=== PATIENT | female | born 1965 | race Caucasian/White ===

== ENCOUNTER 2018-08-26 05:28 | Inpatient (IN) | payer BC ==
[2018-08-26] MEDS ORDERED: Gabapentin 300 MG Cap PO ONE (05:30)
[2018-08-26] MEDS ORDERED: Celecoxib 200 MG Cap PO ONE (05:30)
[2018-08-26] MEDS ORDERED: Scopolamine 1.5 MG Transdermal Patch TOP ONE (05:30)
[2018-08-26] MEDS ORDERED: Acetaminophen 500 MG Tab PO ONE (05:30)
[2018-08-26] MEDS ORDERED: cefOXitin 2 GM in Sodium Chloride 0.9% 50 ML IV ONE (06:00)
[2018-08-26] MEDS ORDERED: Dextrose 5%-Lactated Ringers 1,000 ML IV SCH (06:00)
[2018-08-26] MEDS ORDERED: Succinylcholine 200 MG/10 ML MDV ONE (06:57)
[2018-08-26] MEDS ORDERED: Dexamethasone 4 MG/ML SDV ONE (06:57)
[2018-08-26] MEDS ORDERED: Ondansetron 4 MG/2 ML SDV ONE (06:57)
[2018-08-26] MEDS ORDERED: Propofol 200 MG/20 ML SDV ONE (06:57)
[2018-08-26] MEDS ORDERED: Neostigmine Methylsulfate 1 MG/ML 5 ML Syringe ONE (06:57)
[2018-08-26] MEDS ORDERED: Rocuronium 50 MG/5 ML Vial ONE (06:57)
[2018-08-26] MEDS ORDERED: Glycopyrrolate 0.2 MG/ML 5 ML MDV ONE (06:57)
[2018-08-26] MEDS ORDERED: cefOXitin 2 GM Vial ONE (06:58)
[2018-08-26] MEDS ORDERED: Ketamine 50 MG in Sodium Chloride 0.9% 49.5 ML IV SCH (07:30)
[2018-08-26] MEDS ORDERED: Ketamine 500 MG/5 ML MDV IV SCH (07:30)
[2018-08-26] MEDS ORDERED: Lidocaine 0.4%/D5W 2 GM/500 ML BAG IV SCH (07:45)
[2018-08-26] MEDS ORDERED: Lidocaine 2% 100 MG/5 ML Syringe IVPUSH SCH (07:45)
[2018-08-26] MEDS ORDERED: hydrOXYzine HCl 100 MG/2 ML SDV IM ONE (09:41)
[2018-08-26] MEDS ORDERED: Naloxone 0.4 MG/ML SDV ONE (09:42)
[2018-08-26] MEDS ORDERED: hydrOXYzine HCl 100 MG/2 ML SDV IM PRN (12:11)
[2018-08-26] MEDS ORDERED: diphenhydrAMINE 50 MG/ML SDV IVPUSH PRN (12:11)
[2018-08-26] MEDS ORDERED: Labetalol 20 MG/4 ML Syringe IVPUSH PRN (12:11)
[2018-08-26] MEDS: Dextrose 5%-Lactated Ringers 1,000 ML IV SCH ×2 (13:53→22:59)
[2018-08-26] MEDS: Ondansetron 4 MG/2 ML SDV IVPUSH PRN ×2 (15:18→20:25)
[2018-08-26] MEDS: Heparin Sodium 5,000 Units/ML Vial SUBCUT SCH (15:22)
[2018-08-26] MEDS: Acetaminophen 325 MG Tab PO SCH ×2 (15:22→21:03)
[2018-08-26] MEDS: cefOXitin 2 GM in Sodium Chloride 0.9% 50 ML IV SCH ×2 (15:33→21:03)
[2018-08-26] MEDS ORDERED: Pantoprazole 40 MG Vial IVPUSH SCH (16:00)
[2018-08-26] MEDS ORDERED: MVI, Adult with Vitamin K 10 ML, Thiamine 200 MG, Chromium/Copper/Mang/Selen/Zn 1 ML in... IV SCH ×4 (16:00)
[2018-08-26] MEDS: Gabapentin 300 MG Cap PO SCH (20:14)
[2018-08-26] MEDS: DULoxetine 30 MG Cap PO SCH (20:16)
[2018-08-27] MEDS: Heparin Sodium 5,000 Units/ML Vial SUBCUT SCH ×2 (03:43→16:21)
[2018-08-27] MEDS: cefOXitin 2 GM in Sodium Chloride 0.9% 50 ML IV SCH ×2 (03:44→09:34)
[2018-08-27] MEDS: Acetaminophen Soln 650 MG/20.3 ML UD Cup PO SCH ×4 (03:54→21:09)
[2018-08-27] MEDS: Ondansetron 4 MG/2 ML SDV IVPUSH PRN (03:54)
[2018-08-27] MEDS ORDERED: Iopamidol 612 MG/ML 50 ML SDV PO STA (03:57)
--- NOTE | 2018-08-27 05:05 | CRLCR ---
PRELIMINARY IMPRESSIONS: 1. No evidence of contrast extravasation is noted on 2 static submitted images. 2. Surgical drain is present in the left upper quadrant. Agree with preliminary report. No additional findings. Dictated by: Genaro Araujo MD @ 08/28/2018 13:32:07 (Electronically Signed)
[2018-08-27] MEDS: Dextrose 5%-Lactated Ringers 1,000 ML IV SCH ×2 (05:08→13:55)
[2018-08-27] MEDS ORDERED: Ondansetron 4 MG Tab.DIS PO PRN (07:21)
[2018-08-27] MEDS: DULoxetine 30 MG Cap PO SCH ×2 (08:09→21:09)
[2018-08-27] MEDS: Celecoxib 200 MG Cap PO SCH (08:09)
[2018-08-27] MEDS: Gabapentin 300 MG Cap PO SCH ×2 (08:10→21:09)
[2018-08-27] MEDS: SCOPOLAMINE PATCH CHECK TOP SCH (08:10)
--- NOTE | 2018-08-27 08:27 | PN ---
DATE OF SERVICE: 08/27/2018 SUBJECTIVE: Sugey is postoperative day #1. Her upper GI this morning was normal. Vital signs have been stable. She has been up ambulating. Lidocaine was discontinued due to sleepiness. REVIEW OF SYSTEMS: Remainder of review of systems negative for any pertinent positives and negatives. OBJECTIVE: GENERAL: Sugey is a pleasant 53-year-old female. She is lying in bed. Pain is controlled. VITAL SIGNS: TPR 98.5, 70, 18, blood pressure 143/82. HEENT: Negative. NECK: Supple. HEART: Regular rate and rhythm. LUNGS: Clear. ABDOMEN: Dressings dry and intact. TAYLA drain is draining a light pink serosanguineous drainage of 225 mL. Abdominal binder is on. EXTREMITIES: Without peripheral edema. ASSESSMENT: Laparoscopic Arthur-en-Y gastric bypass surgery, liver biopsy, repair of diaphragmatic hernia, excision of mediastinal lipoma, and partial gastrectomy for morbid obesity, hepatomegaly, diaphragmatic hernia, mediastinal lipoma, area of deserosalization of the stomach, status post formation of gastric pouch. Date of surgery: 08/26/2018. PLAN: 1. May shower. 2. Decrease IV to 100 mL per hour. 3. Communication order; 3 med cups, 30 mL every 20 minutes or 3 per hour, record at bedside. 4. Step 2 gastric bypass diet without cereal. 5. Ambulate 6 times daily. 6. May change gabapentin to liquid if the patient desires and to start Cymbalta 30 mg p.o. b.i.d. 7. Zofran ODT 4 mg p.o. q.4 hours p.r.n. nausea. 8. Good pulmonary toilet. 9. We will evaluate p.r.n. or in a.m. Isis Ronquillo PA-C /[id number]
[2018-08-27] MEDS ORDERED: DULoxetine 30 MG Cap PO SCH (09:00)
[2018-08-27] MEDS: Metoclopramide 10 MG/2 ML SDV IVPUSH PRN ×2 (10:15→16:40)
[2018-08-27] MEDS ORDERED: MVI, Adult with Vitamin K 10 ML, Thiamine 200 MG, Chromium/Copper/Mang/Selen/Zn 1 ML in... IV SCH ×4 (16:00)
[2018-08-27] MEDS ORDERED: Pantoprazole 40 MG Delayed-Release Granules 1 Packet PO SCH (16:00)
[2018-08-28] MEDS: Dextrose 5%-Lactated Ringers 1,000 ML IV SCH (02:27)
[2018-08-28] MEDS: Heparin Sodium 5,000 Units/ML Vial SUBCUT SCH (03:35)
[2018-08-28] MEDS: Acetaminophen Soln 650 MG/20.3 ML UD Cup PO SCH ×2 (03:35→09:47)
[2018-08-28] MEDS: Celecoxib 200 MG Cap PO SCH (07:57)
[2018-08-28] MEDS: Gabapentin 300 MG Cap PO SCH (08:42)
[2018-08-28] MEDS: SCOPOLAMINE PATCH CHECK TOP SCH (08:43)
[2018-08-28] MEDS: DULoxetine 30 MG Cap PO SCH (08:43)
[2018-08-28] MEDS ORDERED: Cyanocobalamin (Vitamin B12) 1,000 MCG/ML SDV IM ONE (09:00)
[2018-08-28] MEDS ORDERED: Magnesium Hydroxide 400 MG/5 ML Susp 30 ML Cup PO ONE (09:30)
--- NOTE | 2018-08-28 13:52 | DISCH ---
ADMISSION DIAGNOSES: 1. Morbid obesity, BMI is 46. 2. Depression. 3. History of nicotine addiction. DISCHARGE DIAGNOSES: Laparoscopic Arthur-en-Y gastric bypass surgery, liver biopsy, repair of diaphragmatic hernia, excision of mediastinal lipoma and partial gastrectomy for morbid obesity, hepatomegaly, diaphragmatic hernia, mediastinal lipoma, area of deserosalization of the stomach following status post formation of gastric pouch. Date of surgery: 08/26/2018. Surgeon: Danny Panda MD. HISTORY: Sugey Gallo is a 53-year-old female with longstanding history of morbid obesity and increasing comorbidities. After preoperative evaluation and discussion of possible risks and possible complications, she wished to proceed with surgical procedure. HOSPITAL COURSE: Sugey had her surgery on 08/26/2018. She had no operative complications. On postoperative day #1, she was started on step 2 gastric bypass diet with no cereal. Her IV was decreased. She was given 3 med cups to take as needed. She did have some problems with nausea, which were resolved with Zofran and Reglan. Her oral intake was adequate. Her activity was good. Pain was well managed, and she was able to be discharged to home without any complications on postoperative day #2. PHYSICAL EXAMINATION: GENERAL: Sugey Gallo is a pleasant 53-year-old female. VITAL SIGNS: Height is 5 feet 5.5 inches, weight is 281 pounds, BMI is 46. TPR is 99.3, 79, 16, blood pressure 131/70. HEENT: Negative. NECK: Supple. HEART: Regular rate and rhythm. LUNGS: Clear. ABDOMEN: Incisions intact. 4x4s will be placed over TAYLA drain when it is removed, and abdominal binder has been on. EXTREMITIES: Without peripheral edema. DISPOSITION: Discharged to home. CONDITION: Stable and improving. FOLLOWUP APPOINTMENT: Isis Ronquillo PA-C, on 09/03/2018 at 11 a.m. Appointment at [place], [place]. HOME MEDICATIONS: 1. Tylenol 650 mg oral q.6 hours. 2. Celebrex 200 mg p.o. daily #14. 3. Milk of magnesia 30 mL, 2 were sent home with the patient to take one today and one tomorrow. 4. Reglan 10 mg q.6 hours p.r.n. severe nausea, #30. 5. Zofran ODT 4 mg q.4 hours p.r.n. nausea. 6. Cymbalta 30 mg oral twice daily. 7. Gabapentin 600 mg oral twice daily. 8. She is to stop the vitamins and supplements after first postoperative appointment. DIET: Step 2 gastric bypass diet with no cereal for 2 weeks. Drink 8 to 10 glasses of water a day. ACTIVITY: Other activity, walk 6 times daily, distance and time as tolerated. Driving: Do not drive for 1 week. Shower/bathing: May shower. DISCHARGE INSTRUCTIONS: Notify provider if any fever, increased pain, nausea, or vomiting. Keep site clean and dry. Wear abdominal binder for 2 weeks and then as tolerated. SPECIAL INSTRUCTIONS: Use incentive spirometer 10 times every hour while awake for 1 week.
--- NOTE | 2018-09-09 11:13 | OR ---
DATE OF PROCEDURE: 08/26/2018 PREOPERATIVE DIAGNOSIS: Morbid obesity. POSTOPERATIVE DIAGNOSES: 1. Morbid obesity. 2. Marked hepatomegaly. 3. Paraesophageal diaphragmatic hernia. 4. Mediastinal lipoma. 5. Area of gastric ischemia, status formation of gastric pouch. OPERATIVE PROCEDURES: Diagnostic laparoscopy with, 1. Laparoscopic Arthur-en-Y gastric bypass with long-limb gastroenterostomy (56394). 2. Elvin-Cut needle liver biopsy (14980). 3. Repair of paraesophageal diaphragmatic hernia (79773). 4. Excision of mediastinal lipoma (76948). 5. Partial gastrectomy (09974). ANESTHESIA: General. INDICATION FOR PROCEDURE: This is a 53-year-old female with longstanding morbid obesity and increasingly significant comorbidities. After preoperative evaluation and discussion, she wished to proceed with a gastric bypass procedure. Potential risks including bleeding, infection, leaks from various GI tract closures, problems with bowel obstruction over time, as well as the possibility of cardiopulmonary, septic, or hemorrhagic complications leading to were all discussed, and the patient wishes to proceed. DETAILS OF PROCEDURE: The patient was taken to the operating room and after general endotracheal anesthesia was induced, she was placed in a lithotomy position, and the abdomen was prepped and draped. 15 cm inferior and 5 cm left of the xiphoid process, a transverse incision was made, and the peritoneal cavity entered under direct vision with an Optiview trocar and inflated to 15 mmHg pressure of CO2. Laparoscope was then reinserted and no underlying trocar insertion site injuries were seen. Following this, five additional trocars were placed across the upper and mid abdomen, and general exploration was undertaken. The patient was noted to have marked hepatomegaly and grossly fatty infiltrated liver. Elvin-Cut biopsies were obtained from left lobe of liver. Minimal bleeding from the biopsy sites was controlled with electrocautery. At this point, bilateral subcostal transversus abdominis plane blocks were placed. Attention was taken to the formation of the jejunojejunostomy. The omentum was then divided in the midline up to the level of the transverse colon. This allowed identification of the small bowel at the ligament of Treitz. The small bowel was then traced out 100 cm distal to that point, where it was divided transversely with a SHE stapler. Small bowel was then traced out additional 150 cm, where the iwef-iq-yjie enteroenterostomy was accomplished with internal firing of the Endo-SHE 60 mm stapler. Common opening was then closed transversely with the same stapler, and the angles of anastomosis and mesenteric defect approximated with some 0 Ethibond stitch along with 4 mL of fibrin sealant. The divided end of the Arthur limb was then from the mesentery for a few centimeters, which allowed an antecolic position of the Arthur limb up to the level of the gastroesophageal junction without tension. The liver was then retracted anteriorly. The patient was noted to have moderate-sized paraesophageal diaphragmatic hernia with prolapse of some perigastric fat of the gastric fundus and a tongue of omentum in a plane anterior to the course of the esophagus. This was reduced. The peritoneum overlying was incised and reflected downward. During the course of the dissection, a mediastinal lipoma was encountered and this was excised to facilitate a more adequate crural closure. The latter was then accomplished with a series of 0 Ethibond sutures reinforced with PTFE pledgets placed in an anterior location. At this point, the gastrointestinal balloon catheter was then inflated to 15 mL and pulled up snuggly against the EG junction. Gastric wall over the apex of balloon was then marked with electrocautery and balloon catheter deflated and pulled up into the esophagus. The lesser omentum adjacent to the gastric cardia was incised allowing dissection behind the stomach at that level. Pouch formation was initiated with transverse firing of the SHE stapler at the level of cauterized anaid at the gastric cardia and then completed with additional firings of the SHE stapler up to and through the angle of His. Upon completion of the staple lines, there was noted to be an area of ischemia involving the bypassed portion of the stomach up under the spleen. This was felt to be best treated by means of excision to avoid possible leak at that location. This was accomplished with one additional firing of the SHE stapler at that level and that specimen was delivered from the field. The anvil of a 25-mm EEA stapler was attached to [place] sump tube. The latter was brought down through the mouth, taken out a small opening in the gastric pouch, allowing the anvil likewise to be pulled down to within the gastric pouch. The divided end of the Arthur limb was then opened and main body of the EEA stapler passed several centimeters into the lumen of small bowel, brought up the anvil and united with it thus creating a gastrojejunostomy. Upon removal of the stapler, double donuts of mucosa were noted within it. The small bowel was closed off with a vascular staple line. Gastrojejunostomy was reinforced with 3-0 Vicryl seromuscular stitch along with fibrin sealant. A leak test was accomplished with injection of 120 mL of air within the gastric pouch while it submerged with a cefoxitin- containing saline solution. No leaks were identified. A single Pascual-Agudelo drain was then placed adjacent to gastrojejunostomy and up into the splenic fossa. The trocars were then sequentially removed and the peritoneal cavity deflated. Incisions were closed with some 4-0 Vicryl skin stitch as was also used to fix the drain. The patient was taken to the recovery room in a satisfactory condition. There were no evident complications. Danny Panda MD /[id number]
== END 2018-08-28 13:37 | disposition home or self-care (01) | DRG 403 ==
LOC: JP.SDS 05:28 → JP.SDSSCHI 05:28 → JP.MS 09:45 → EDSTATUS 12:30
PROVIDERS: ADMIT Surgery; ATTEND Surgery
PROC: 0D164ZA Bypass Stomach to Jejunum, Percutaneous Endoscopic Approach (ICD-10-PCS; principal; 2018-08-26)
PROC: 0FB24ZX Excision of Left Lobe Liver, Percutaneous Endoscopic Approach, Diagnostic (ICD-10-PCS; 2018-08-26)
PROC: 0BQT4ZZ Repair Diaphragm, Percutaneous Endoscopic Approach (ICD-10-PCS; 2018-08-26)
PROC: 0DB64ZZ Excision of Stomach, Percutaneous Endoscopic Approach (ICD-10-PCS; 2018-08-26)
PROC: 0WBC4ZX Excision of Mediastinum, Percutaneous Endoscopic Approach, Diagnostic (ICD-10-PCS; 2018-08-26)
DX: E66.01 Morbid (severe) obesity due to excess calories (principal); Z68.42 Body mass index [BMI] 45.0-49.9, adult; R16.0 Hepatomegaly, not elsewhere classified; K31.89 Other diseases of stomach and duodenum; K76.0 Fatty (change of) liver, not elsewhere classified; G62.9 Polyneuropathy, unspecified; K44.9 Diaphragmatic hernia without obstruction or gangrene; D17.4 Benign lipomatous neoplasm of intrathoracic organs; F33.41 Major depressive disorder, recurrent, in partial remission; Z79.899 Other long term (current) drug therapy
CPT/HCPCS: 36415; 74240; 81025; 82962; 86850; 86900; 86901; 88304; 88305; 88307; 88313; A9270-GY; C9113; J0171; J0330; J0694; J1100; J1644; J2001; J2310; J2405; J2704; J2710; J2765; J2795; J3010; J3411; J3420; J3490; J7042; J7050; Q9967